=== PATIENT | male | born 2000 | race Caucasian/White ===

== ENCOUNTER 2022-02-27 09:12 | Day surgery (SDC) | payer OTHER ==
[~2022-02-27] VITALS: Ht 165.1 cm; Wt 71.7 kg
[~2022-02-27 09:12] MED LIST: NS 1,000 ML IV ONE
[2022-02-27] MEDS ORDERED: LIDOCAINE 2% 100MG/5ML SDV (FOR ANES.) As Ordered ONE (10:34)
[2022-02-27] MEDS ORDERED: propofoL 200 MG/20 ML VIAL As Ordered ONE (10:34)
[2022-02-27] MEDS ORDERED: fentaNYL 100 MCG/2 ML INJECTION As Ordered ONE (10:35)
[2022-02-27 11:12] VITALS: BP 134/63
== END 2022-02-27 11:22 | disposition home or self-care (01) ==
LOC: M OPP 09:12
PROVIDERS: ATTEND Internal Medicine Gastroenterology
DX: K22.89 Other specified disease of esophagus (principal); K31.89 Other diseases of stomach and duodenum; Z79.899 Other long term (current) drug therapy; Z79.891 Long term (current) use of opiate analgesic; K74.60 Unspecified cirrhosis of liver
CPT/HCPCS: 43239; 88305; J3010

== ENCOUNTER → 2022-10-02 | Outpatient (CLI) | payer OTHER | LOC: M RAD 16:27 | DX: M25.521 Pain in right elbow (principal) ==